=== PATIENT | male | born 1970 | race African-American/Black ===

== ENCOUNTER 2018-02-22 06:54 | Emergency (ER) | payer OTHER ==
--- NOTE | 2018-02-22 07:04 | PDOC ---
History of Present Illness - General Chief Complaint: Injury Stated Complaint: HEAD INJURY Time Seen by Provider: 02/22/18 07:04 - History of Present Illness Initial Comments: 47 year old male with PMH of HTN presenting with pain over the left eye after accidental trauma from a wooden plank. 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 He had immediate pain and bleeding from the site. Denies LOC, fall, visual symptoms, headache, nausea, vomiting, gait issues, or other symptoms. Does not take blood thinners. Unsure of tetanus status. 02/22/18 07:44 Past History - Past Medical History Allergies/Adverse Reactions: Allergies Allergy/AdvReac Type Severity Reaction Status Date / Time No Known Allergies Allergy Verified 02/22/18 07:05 Review of Systems - Review of Systems Constitutional: No: Chills, Diaphoresis, Fever, Loss of Appetite HEENTM: No: Eye Pain, Blurred Vision, Tearing, Double Vision Respiratory: No: Cough, Orthopnea, Shortness of Breath, Wheezing Cardiac (ROS): No: Chest Pain, Edema, Irregular Heart Rate ABD/GI: No: Diarrhea, Nausea, Vomiting : No: Dysuria, Frequency Musculoskeletal: No: Muscle Pain, Neck Pain, Joint Stiffness Integumentary: Yes: Change in Color, Lesions. No: Bruising, Pruritus, Rash Neurological: No: Headache, Numbness, Tremors, Weakness, Unsteady Gait Psychiatric: No: Anxiety, Depression Hematologic/Lymphatic: No: Anemia, Blood Clots, Easy Bleeding *Physical Exam - Physical Exam General Appearance: Yes: Nourished, Appropriately Dressed. No: Apparent Distress HEENT: positive: EOMI, KELSY, Normal ENT Inspection, Normal Voice, Other ( Laceration above left eye per skin section) Neck: positive: Trachea midline, Normal Thyroid, Supple. negative: Tender, Rigid Respiratory/Chest: positive: Lungs Clear, Normal Breath Sounds. negative: Chest Tender, Respiratory Distress, Accessory Muscle Use Cardiovascular: positive: Regular Rhythm, Regular Rate Gastrointestinal/Abdominal: positive: Normal Bowel Sounds, Flat, Soft. negative : Tender Lymphatic: negative: Adenopathy, Tenderness Musculoskeletal: positive: Normal Inspection. negative: CVA Tenderness Extremity: positive: Normal Capillary Refill, Normal Inspection, Normal Range of Motion. negative: Tender Integumentary: positive: Normal Color, Dry, Warm, Other (2.2 CM linear laceration over left lateral brow ridge. Slight dried blood around edge of wound. No obvious foreign body or penetration into deep space.) Procedures - Laceration/Wound Repair Left Anterior Lateral Eye Wound Length: to 2.5 cm Wound Explored: clean Wound's Depth, Shape: superficial, linear Irrigated w/ Saline: Yes Betadine Prep: No Anesthesia: 1% Lidocaine Amount of Anesthetic (ccs): 4 Wound Debrided: none Wound Repaired With: Sutures Suture Size/Type: 5:0, nylon Number of Sutures: 3 Layer Closure: No Sterile Dressing Applied: Yes Splint Applied: No Sling Applied: No Progress: 2.2 CM wound irrigated with 500 mL sterile water after 4 mL of 1% lidocaine infiltrated within the wound edge. Adequate anesthesia achieved and 3 5.0 non- absorb sutures placed in an interrupted fashion with good closure and hemostasis. Bacitracin and light gauze with tape applied over wound. 02/22/18 07:49 Medical Decision Making - Medical Decision Making 47 year old with left upper eyebrow ridge lac. Low mechanism of injury with minimal bleeding. Boostrix administered. Wound repaired per procedure note and return precautions relayed with follow up instructions. 02/22/18 07:51 *DC/Admit/Observation/Transfer Diagnosis at time of Disposition: Laceration of left eyebrow without complication Qualifiers: Encounter type: initial encounter Qualified Code(s): S01.112A - Laceration without foreign body of left eyelid and periocular area, initial encounter - Discharge Dispostion Disposition: HOME Condition at time of disposition: Fair Decision to Admit order: No - Referrals Referrals: [facility] [place] [facility] [place] [Provider Group] - Patient Instructions Printed Discharge Instructions: DI for Closed Head Injury, DI for Laceration Repair Additional Instructions: Please follow up with the medical clinic listed in two days for a wound check or you may come to urgent care for the wound check. Likely you will have to return to the primary care or our urgent care for stitch removal at 5 days. Please keep the area clean and dry for 24 hours then you may use gentle warm soap and water solution to clean the area. Please protect it from the sun and irritation to promote healing. Please return immediately to the ED if you notice worsening swelling, drainage of smelly or yellow fluid, have worsening pain, or experience fevers. - Post Discharge Activity Forms/Work/School Notes: Back to Work
[2018-02-22 07:05] VITALS: BMI 34.2
[2018-02-22] MEDS ORDERED: DIPHTH,PERTUSS(ACELL),TET 0.5 ML DISP.SYRIN IM ONE (07:43)
--- NOTE | 2018-02-22 07:57 | PDOC ---
Attending Attestation - Resident Resident Name: Tyrone Diaz - ED Attending Attestation I have performed the following: I have examined & evaluated the patient, The case was reviewed & discussed with the resident, I agree w/resident's findings & plan, Exceptions are as noted - HPI HPI: 02/22/18 08:18 Mr Santillan is a 47-year-old male presented to emergency department with a complaint of left eyebrow laceration. He was on a work site, was breaking a piece of plywood with his foot, one of the ends flew up due to momentum and struck him on the left eyebrow. No loss of consciousness, no amnesia, no vomiting. Tetanus status not up-to-date. - Physicial Exam PE: 02/22/18 08:19 GENERAL: The patient is in no acute distress. HEAD: (+) left eyebrow laceration EYES: PERRLA, EOMI, sclera anicteric, conjunctiva clear. NECK: Normal range of motion, supple without midline tenderness LUNGS: Breath sounds equal, clear to auscultation bilaterally. HEART:Regular rate and rhythm, normal S1 and S2 without murmur, rub or gallop. ABDOMEN: Soft, nontender, normoactive bowel sounds. EXTREMITIES: Normal range of motion NEUROLOGICAL: Cranial nerves II through XII grossly intact. Normal speech. No focal neurological deficits. MUSCULOSKELETAL: Back non-tender to palpation, no CVA tenderness SKIN: left eyebrow laceration - Medical Decision Making 02/22/18 08:20 Eye brow laceration s/p suture Head trauma, no Head CT needed Will discharge to home <Funmilayo Borden - Last Filed: 02/22/18 08:20> Attestations - Attestations 02/22/18 08:12 Documentation prepared by Sydnee Anton, acting as medical attendant for Funmilayo Borden MD. <Sydnee Anton - Last Filed: 02/22/18 08:12>
[2018-02-22 08:32] VITALS: BP 159/86; PULSE 89; TEMP 97.2
== END 2018-02-22 08:26 | disposition home or self-care (01) ==
LOC: JER 06:54
PROC: 3E0234Z Introduction of Serum, Toxoid and Vaccine into Muscle, Percutaneous Approach (ICD-10-PCS; principal; 2018-02-22)
PROC: 0HQ1XZZ Repair Face Skin, External Approach (ICD-10-PCS; 2018-02-22)
DX: S01.112A Laceration without foreign body of left eyelid and periocular area, initial encounter (principal); W20.8XXA Other cause of strike by thrown, projected or falling object, initial encounter; Y93.H3 Activity, building and construction; Y92.61 Building [any] under construction as the place of occurrence of the external cause; Y99.0 Civilian activity done for income or pay
CPT/HCPCS: 90715; 99281-25

== ENCOUNTER 2018-02-24 10:41 | Emergency (ER) | payer OTHER ==
[2018-02-24 10:50] VITALS: BP 134/84; PULSE 81; TEMP 97.9; BMI 34.4
--- NOTE | 2018-02-24 11:27 | PDOC ---
Suture Removal/Wound Check HPI - History of Present Illness Chief Complaint: Wound Stated Complaint: REVISIT, SUTURE/STAPLE PROBLEM Time Seen by Provider: 02/24/18 11:12 History Source: Yes: Patient Exam Limitations: Yes: No Limitations Treated at: [facility] ED - Previous ED Treatment Type of procedure performed on last visit: Yes: Laceration Repair Tetanus Immunization: Yes: Up to Date - Onset of Previous Treatment Timing/Duration/Severity of Onset: reports: Yesterday Past History - Travel Traveled outside of the country in the last 30 days: No Close contact w/someone who was outside of country & ill: No - Past Medical History Allergies/Adverse Reactions: Allergies Allergy/AdvReac Type Severity Reaction Status Date / Time No Known Allergies Allergy Verified 02/22/18 07:05 Home Medications: Ambulatory Orders NK [No Known Home Medication] 02/24/18 COPD: No - Immunization History Immunization Up to Date: No - Suicide/Smoking/Psychosocial Hx Smoking History: Never smoked Have you smoked in the past 12 months: No Hx Alcohol Use: No Drug/Substance Use Hx: No Suture Removal/Wound Check PE - Physical Exam Laceration/Wound Check Symptoms: reports: None Current Severity Level: None Maximum Severity Level: None *Review of Systems - Review of Systems Able to Perform ROS?: Yes Constitutional: Yes: Symptoms Reported, See HPI. No: Malaise Respiratory: No: Symptoms reported Neurological: Yes: See HPI. No: Symptoms reported, Headache All Other Systems: Reviewed and Negative *Physical Exam - Vital Signs Last Vital Signs Temp Pulse Resp BP Pulse Ox 97.9 F 81 20 134/84 99 02/24/18 10:48 02/24/18 10:48 02/24/18 10:48 02/24/18 10:48 02/24/18 10:48 - Physical Exam General Appearance: Yes: Nourished, Appropriately Dressed. No: Apparent Distress HEENT: positive: KELSY, Normal ENT Inspection, TMs Normal, Pharynx Normal Neck: negative: Tender Extremity: positive: Normal Capillary Refill Integumentary: positive: Normal Color, Other (for stitches to left lateral brow approximating well without swelling, erythema, or drainage.) Neurologic: positive: station inspector II-XII NML intact, Fully Oriented, Alert, Normal Mood/ Affect, Normal Response, Motor Strength 5/5 *DC/Admit/Observation/Transfer Diagnosis at time of Disposition: Visit for wound check - Discharge Dispostion Disposition: HOME Condition at time of disposition: Stable Decision to Admit order: No - Referrals - Patient Instructions Additional Instructions: Rest, elevate, avoid strenuous activity or heavy lifting until sutures are removed Leave dressing on for the next 24 hours, Then may remove dressing gently and wash area with soap and water. Reapply bacitracin ointment and dressing daily for the next 5 days On day #6 keep the wound protected and cover as needed until sutures are removed allowing wound to start to dry May use Tylenol or Motrin for pain relief Suture removal in : 5-7 Days - Post Discharge Activity Forms/Work/School Notes: Back to Work
== END 2018-02-24 11:25 | disposition home or self-care (01) ==
LOC: JERFT 10:41
DX: Z48.817 Encounter for surgical aftercare following surgery on the skin and subcutaneous tissue (principal)
CPT/HCPCS: 99281-25